=== PATIENT | female | born 1950 | race Caucasian/White ===

== ENCOUNTER → 2025-04-30 | Outpatient (CLI) | payer MEDICARE, OTHER ==
[~2025-04-30] MED LIST: ANAS1 PO; CHOL10002; Crestor40 MG PO; DHEA PO; DULO30 PO; ESTROGEN CREAM; HYDR1TAB94 PO; LEVO750 PO; METO50ER PO; ONDA4ODT MM; PRAV20 PO; Percocet 5-3251 EACH PO; TOCO1000 PO; VICODIN 5-3001 EACH PO; Zofran Odt4 MG SL
== END ==
LOC: LAB 17:54 → LAB SHORT 17:54
DX: N39.0 Urinary tract infection, site not specified (principal)
CPT/HCPCS: 87086